=== PATIENT | male | born 1960 | race Two or more races ===

== ENCOUNTER 2023-04-05 23:49 | Inpatient (IN) | payer OTHER ==
[~2023-04-05] VITALS: Ht 175.3 cm; Wt 90.7 kg
--- NOTE | 2023-04-06 00:06 | NUR ---
PACIENTE ALERTA Y ORIENTADO X3. REFIERE VENIR POR DOLOR EN EL CUADRANTE SUPERIOR XENA DEL ABDOMEN Y 10 EPISODIOS DE VOMITOS (COMIDA Y HECES FECALES). PACIENTE REFIERE ESTUVO ADMITIDO POR OBSTRUCCION INTESTINAL HACE P[facility] Y [facility] RECIENTE. PACIENTE CON ABDOMEN DISTENDIDO MARTI DEPRESIBLE A LA PALPACION.
--- NOTE | 2023-04-06 01:25 | NUR ---
PACIENTE EVAUADA POR DR. NARAYAN PONCE [place] [facility], TYLER LINARES EDUCA ACERCA DEL MISMO Y REFIRE ENTENDER. SE CANALIZA Y COLECTAN MUESTRAS DE LABORATORIO MEDIANTE MEDIDAS ASEPTICAS. SE ADMINISTRAN MEDICAMENTOS ANDREE ORDEN MEDICA
[2023-04-06 01:40] LABS: HEMATOCRIT 48.3 % (39.0-48.0); HEMOGLOBIN 16.3 g/dL (13-16.00); MEAN CELL VOLUME 85.6 fL (80.0-100.00); MEAN CORPUSCULAR HEMOGLOBIN 28.8 pg (27.00-32.0); MEAN CORPUSCULAR HGB CONC 33.7 g/dl (32.0-36.0); PLATELET COUNT 202 K/uL (150-450); RED BLOOD COUNT 5.65 M/uL (4.00-6.00)
[2023-04-06 02:16] LABS: INR 1.01; PARTIAL THROMBOPLASTIN TIME 25.9 SECONDS (22.0-34.0); PROTHROMBIN TIME 10.6 SECONDS (9.0-11.5)
[2023-04-06 02:20] LABS: ALBUMIN 3.8 gm/dL (3.4-5.0); BILIRUBIN TOTAL 0.62 mg/dL (0.3-1.2); BILIRUBIN,CONJUGATED 0.18 mg/dL (0.0-0.2); BILIRUBIN,UNCONJUGATED 0.44 mg/dL (0.0-0.6); CALCIUM 9.9 mg/dL (8.5-10.1); CREATININE SERUM 1.16 mg/dL (0.70-1.30); GFR 64.22; GLOBULINA 4.6 G/DL (2.4-3.5); POTASSIUM 3.69 mEq/L (3.5-5.1); TOTAL PROTEIN 8.4 gm/dL (6.4-8.2)
--- NOTE | 2023-04-06 07:51 | NUR ---
SE RECIBE PTE MASCULINO DE 62 YRS ALERTA CONCIENTE Y TRANQUILO EN [place] CON BARADAS ELEVADA., SE MANTIENE EN ESPERA DE DR.BAEZ IRELANDO LA CUAL EVALUADA. SE LE ZHANNA S/V LA CUAL SE DOCUMETAC. PTE ACOMPANANO DE FAMILIR SE MANTIENE BAJO OBSERVACION POR CAMBIOS EN ANGELO CONDICION. SE MANTIENE EN ESPERA DE TUBO NASOGASTRICO CON SUBCION INSTERMITENTE.
--- NOTE | 2023-04-06 08:09 | NUR ---
PTE PENDIENTE A LA ZHANNA DE MUESTRA DE ORINA LA CUAL SE ORIENTA Y TIENE EL ENVASE CON EL. SE OBSERVA POR CAMBISO.
--- NOTE | 2023-04-06 09:04 | NUR ---
SE COLOCA NGT EN FOSA NASAL DERECHA BAJO MEDIDAS ASEPTICAS. SE CONECTA A SUCCION INTERMITENTE.
[2023-04-06 10:25] LABS: PH,URINE 5.5 (5.0-8.0); URINE APPEARANCE Clear; URINE BILIRRUBIN Negative (NEGATIVE); URINE BLOOD Negative; URINE COLOR Yellow; URINE GLUCOSE Negative (NEGATIVE); URINE LEUKOCYTE Negative; URINE NITRATE Negative; URINE PROTEIN Negative (NEGATIVE)
[2023-04-06 10:26] LABS: URINE BACTERIA 8.8 uL (0.0-1933); URINE WBC 2.9 uL (0.0-23.2)
[2023-04-06 10:27] LABS: URINE EPITHELIAL CELLS 1.3 uL (0.0-38.8)
== END 2023-04-09 16:35 | disposition home or self-care (01) | DRG 390 ==
LOC: ER 23:49 → SURH 04-06 16:36
PROVIDERS: General Practice; ADMIT Internal Medicine; ATTEND Internal Medicine
PROC: BW21YZZ Computerized Tomography (CT Scan) of Abdomen and Pelvis using Other Contrast (ICD-10-PCS; principal; 2023-04-06)
DX: K56.699 Other intestinal obstruction unspecified as to partial versus complete obstruction (principal); K57.30 Diverticulosis of large intestine without perforation or abscess without bleeding; Z20.822 Contact with and (suspected) exposure to COVID-19